=== PATIENT | female | born 1965 | race Caucasian/White ===

== ENCOUNTER 2021-05-24 16:53 | Emergency (ER) | payer MEDICAID ==
[2021-05-24 17:33] VITALS: BP 180/105
[2021-05-24] MEDS ORDERED: CEPH250T PO (17:37)
== END 2021-05-24 17:54 | disposition home or self-care (01) ==
LOC: ER 16:54
DX: L03.115 Cellulitis of right lower limb (principal); Z79.2 Long term (current) use of antibiotics
CPT/HCPCS: 99283